=== PATIENT | male | born 1970 | race African-American/Black ===

== ENCOUNTER → 2024-06-07 | Day surgery (SDC) | payer OTHER ==
[~2024-06-07] MED LIST: ATORVASTATIN CA10 MG PO; FLOMAX0.4 MG PO; HYDRALAZINE HCL50 MG PO; LACTATED RINGER'S 1,000 ML ONE; MAGNESIUM500 MG PO; MICARDIS80 MG PO
[2024-06-07] MEDS: ALBUTEROL/IPRATROPIUM 3 ML NEB ONE (08:30)
[2024-06-07 10:20] VITALS: TEMP 97.7
[2024-06-07 10:50] VITALS: BP 144/91; PULSE 76; RESP 17; O2SAT 99
== END | disposition home or self-care (01) ==
LOC: OR 07:23
PROVIDERS: ATTEND Internal Medicine Gastroenterology
DX: K59.09 Other constipation (principal); D12.2 Benign neoplasm of ascending colon; K62.1 Rectal polyp; K63.89 Other specified diseases of intestine; K62.89 Other specified diseases of anus and rectum; K57.30 Diverticulosis of large intestine without perforation or abscess without bleeding; K64.8 Other hemorrhoids; E78.5 Hyperlipidemia, unspecified; I10 Essential (primary) hypertension; J45.909 Unspecified asthma, uncomplicated; E11.9 Type 2 diabetes mellitus without complications; N40.0 Benign prostatic hyperplasia without lower urinary tract symptoms; F17.210 Nicotine dependence, cigarettes, uncomplicated; Z88.2 Allergy status to sulfonamides; Z79.899 Other long term (current) drug therapy
CPT/HCPCS: 45380; 45385; 94640; J7121; 45378